=== PATIENT | male | born 1950 | race Caucasian/White ===

== ENCOUNTER → 2020-10-02 | Outpatient (CLI) | payer OTHER ==
[2020-10-02 07:49] LABS: POTASSIUM 4.3 mmol/L (3.5-5.1)
== END ==
LOC: M.LAB 05:25
PROVIDERS: ATTEND Anesthesiology
DX: E78.6 Lipoprotein deficiency (principal); E11.9 Type 2 diabetes mellitus without complications

== ENCOUNTER → 2020-12-13 | Outpatient (CLI) | payer OTHER | LOC: M.LAB 08:59 | PROVIDERS: ATTEND Anesthesiology | DX: Z01.812 Encounter for preprocedural laboratory examination (principal); Z20.822 Contact with and (suspected) exposure to COVID-19; E87.6 Hypokalemia ==